=== PATIENT | male | born 1955 | race Caucasian/White ===

== ENCOUNTER 2020-03-24 09:21 | Outpatient (CLI) | payer BC, SELFPAY ==
--- NOTE | ~2020-03-24 | XR_ITS ---
XR abdomen/kub 1V 03/24/2020 09:37 Indication: Kidney stones Procedure: KUB Comparison: 08/03/2019 Findings: Stable right renal stone. Bowel pattern nonobstructive. Lung bases unremarkable. There is o steoarthritis of the hips. Impression: 1: Right nephrolithiasis. Reviewed, dictated and finalized at location B. Impression: 1: Right nephrolithiasis.
== END 2020-03-24 09:22 | disposition home or self-care (01) ==
LOC: ANHIMG 09:24
PROVIDERS: Visit Provider Urology
DX: N20.0 Calculus of kidney (principal)
CPT/HCPCS: 74018

== ENCOUNTER 2020-03-25 23:48 | Emergency (ER) | payer BC, SELFPAY ==
--- NOTE | ~2020-03-25 | XR_ITS ---
EXAMINATION: XR abdomen/kub 1V INDICATION: Kidney stone TECHNIQUE: Supine views of the abdomen were obtained on 2 radiographs. COMPARISON: 03/24/2020 FINDINGS: There is a stable 5 mm stone in the right mid kidney. No additional urinary tract calculi a re identified. A phlebolith is noted in the right pelvis. A moderate volume of colonic stool is prese nt. IMPRESSION: 1. Stable right nephrolithiasis. Reviewed, dictated and finalized at location A.
[2020-03-26 00:18] VITALS: BP 128/82; PULSE 60; RESP 20; TEMP 36.5; O2SAT 100
[2020-03-26 00:58] LABS: Add Urine Microscopic? YES; Appearance Urine Cloudy (Clear); Bacteria Urine Trace /hpf; Bilirubin Urine Negative (Negative); Blood Urine 3+ (Negative); Glucose Urine UA Negative (Negative); Ketones Urine Negative (Negative); Leukocyte Esterase Ur Negative LEU/UL (Negative); Mucus Urine Rare /lpf; Nitrate Urine Negative (Negative); Protein Urine 2+ mg/dL (Negative); RBC Urine >75 /hpf (0-2); Specific Grav Ur 1.015 (1.001-1.035); Urobilinogen Urine Negative mg/dL (<2.0)
[2020-03-26 01:01] LABS: Color Urine Light Red (Yellow)
[2020-03-26 01:27] VITALS: BP 129/84; PULSE 84; RESP 19; O2SAT 100
--- NOTE | 2020-03-26 01:50 | ED.MALEGU ---
HPI - Male Genitourinary General Chief complaint: Urogenital-Male Stated complaint: BLOOD IN URINE Time Seen by Provider: 03/26/20 01:17 History of Present Illness HPI Narrative: Hematuria since earlier in the day. Seems to be improving. He had lithotripsy last July. At thaat time he had some residual stones. He had follow-up x-rays 2 days ago and has an appointment with Dr. Starks this week. No pain or fever. Related Data Home Medications Medication Instructions Recorded Confirmed Probiotic 3,000 mmu cells PO DAILY 07/07/19 03/26/20 cholecalciferol (vitamin D3) 2,000 unit PO DAILY 07/07/19 03/26/20 [Vitamin D3] ferrous sulfate 325 mg PO DAILY 07/07/19 03/26/20 lisinopril 20 mg PO DAILY 07/07/19 03/26/20 omega 3-rdx-igk-fish oil [Fish Oil] 1 cap PO TID 07/07/19 03/26/20 potassium citrate 1,080 mg PO DAILY 03/26/20 03/26/20 Allergies Allergy/AdvReac Type Severity Reaction Status Date / Time No Known Allergies Allergy Verified 03/26/20 00:23 Review of Systems Review of Systems: All systems reviewed & are unremarkable except as noted in HPI and below PMFSH Past Medical History Medical History Anemia Arthritis Chronic lymphocytic leukemia Dx 2000 Eczema Hypertension ANASTASIA (obstructive sleep apnea) oral appliance Tachycardia as manifestation of blood transfusion reaction Last seen Dr. Lepe on 06/30/19 Surgical History Surgical History History of hernia repair x2 Social History Social History (Updated 03/28/20 @ 10:12 by Herve Garces MD) Smoking status: Never smoker Exam Const: General: healthy appearing, no acute distress and alert Orientation/consciousness: patient oriented x3 HENMT: Head: normal to inspection Neck: Neck: normal visual inspection and no lymphadenopathy Chest: Chest palpation & inspection: no tenderness Resp: Effort & Inspection: normal respiratory effort Auscultation: clear to auscultation bilaterally, no rales, no rhonchi and no wheezes Cardio: Jugular venous distension: no JVD Rate: regular rate Rhythm: regular rhythm Heart sounds: no murmurs GI: Inspection: non-distended GI Palp: Yes Soft to palpation and No Tenderness to palpation present (GI) Skin: General skin exam: normal color Neuro: General: patient oriented x3 and moves all extremities Speech: normal speech Extrem: General: no edema Psych: Appearance: well kempt Affect: normal affect Course Course Emergency Course: Case discussed with urology. Bleeding likely stone related. No further imaging or antibiotics at this time. He can follow-up as previously planned. Vital Signs Vital signs: Vital Signs Temperature 36.5 C 03/26/20 00:18 Pulse Rate 60 03/26/20 00:18 Respiratory Rate 20 03/26/20 00:18 Blood Pressure 128/82 03/26/20 00:18 Pulse Oximetry 100 03/26/20 00:18 Temperature 36.5 C 03/26/20 00:18 Pulse Rate 80 03/26/20 03:58 Respiratory Rate 16 03/26/20 03:58 Blood Pressure 128/77 03/26/20 03:58 Pulse Oximetry 99 03/26/20 03:58 MDM - Male Genitourinary MDM Narrative Medical decision making narrative: UA shows hematuria without clear sign of infection. KUB shows stone in essentially unchanged position. Medical Records Attestation: I reviewed the patient's medical records. Lab Data Attestation: I reviewed the patient's lab results. Labs: Lab Results 03/26/20 Range/Units 00:34 Urine Color Light red H (Yellow) Urine Appearance Cloudy H (Clear) Urine pH 6.0 (5.0-9.0) Ur Specific Yoder 1.015 (1.001-1.035) Urine Protein 2+ H (Negative) mg/dL Urine Glucose (UA) Negative (Negative) mg/dL Urine Ketones Negative (Negative) mg/dL Ur Blood (Man) 3+ H (Negative) Urine Nitrate Negative (Negative) Urine Bilirubin Negative (Negative) Urine Urobilinogen Negative (<2.0) mg/dL Leukocyte Est
[2020-03-26 03:58] VITALS: BP 128/77; PULSE 80; RESP 16; O2SAT 99
== END 2020-03-26 03:59 | disposition home or self-care (01) ==
PROVIDERS: Emergency Provider Emergency Medicine; PCP Family Medicine
DX: R31.9 Hematuria, unspecified (principal); D64.9 Anemia, unspecified; M19.90 Unspecified osteoarthritis, unspecified site; G47.33 Obstructive sleep apnea (adult) (pediatric); C91.10 Chronic lymphocytic leukemia of B-cell type not having achieved remission
CPT/HCPCS: 74018; 81001; 87086; 99283

== ENCOUNTER 2020-09-27 11:24 | Outpatient (CLI) | payer BC, SELFPAY ==
--- NOTE | ~2020-09-27 | XR_ITS ---
EXAMINATION: XR abdomen/kub 1V EXAM DATE: 09/27/2020 11:45 INDICATION: Right kidney stone. TECHNIQUE: Frontal projection(s) of the abdomen for interpretation. Comparison is made to prior exami nation from 03/26/2020. FINDINGS: There is a approximately 4 mm right upper quadrant calcification, possible nephrolithiasis . Larger calcification projecting over lower pole of left kidney which could be nephrolithiasis measu ring about 7 mm. Moderate amount of colonic stool. No small bowel dilation. There are mild bony degen erative changes. IMPRESSION: 1. Calcifications, probably bilateral nephrolithiasis. Reviewed, dictated and finalized at location A. LOPER ARCHITECT
== END 2020-09-27 11:25 | disposition home or self-care (01) ==
PROVIDERS: PCP Family Medicine; Visit Provider Urology
DX: N20.0 Calculus of kidney (principal)
CPT/HCPCS: 74018

== ENCOUNTER → 2020-10-03 08:14 | Outpatient (CLI) | payer BC, SELFPAY ==
--- NOTE | ~2020-10-03 | XR_ITS ---
EXAMINATION: XR abdomen/kub 1V DATE: 10/03/2020 08:28 INDICATION: Right kidney stone. TECHNIQUE: A supine view of the abdomen on 2 radiographs was obtained. COMPARISON: Abdomen radiographs 09/27/2020 FINDINGS: There are no dilated loops of bowel. There is a large volume of stool in the colon. There a re 4 mm and 2 mm stones in right kidney. There is a phlebolith in right pelvis. IMPRESSION: 1. Right kidney stones. Reviewed, dictated and finalized at location A. ET LINER IMPRESSION: 1. Right kidney stones.
== END ==
PROVIDERS: PCP Family Medicine; Visit Provider Urology
DX: N20.0 Calculus of kidney (principal)
CPT/HCPCS: 74018

== ENCOUNTER → 2021-01-24 15:17 | Outpatient (CLI) | payer BC, SELFPAY ==
--- NOTE | ~2021-01-24 | XR_ITS ---
XR_CERV2-3V_CR DATE: 01/24/2021 15:30 INDICATION: Acute neck pain TECHNIQUE: AP, open-mouth, odontoid, lateral and swimmer views COMPARISON: None FINDINGS: There is mild levoscoliosis of the cervical spine. There is mild reversal of lower cervical curvature. C1 and C2 are normally aligned and the odontoid process is intact. No fracture or dislocation is evid ent. There is minimal anterolisthesis at C4-5. There is moderate degenerative disc disease at C5-6 and severe degenerative disc disease at C6-7. Mid and lower lumbar moderate uncovertebral joint spurring. Degenerative change at the apophyseal justin nts. IMPRESSION: Mild levoscoliosis of the cervical spine Mild reversal of lower cervical curvature Minimal anterolisthesis at C4-5 Degenerative changes including: Moderate degenerative disease at C5-C6 Severe degenerative disc disease at C6-7 Reviewed, dictated and finalized at Location A. Reviewed, dictated and finalized at location B.
== END ==
PROVIDERS: PCP Family Medicine; Visit Provider Family Medicine
DX: M47.812 Spondylosis without myelopathy or radiculopathy, cervical region (principal)
CPT/HCPCS: 72040

== ENCOUNTER → 2021-02-16 15:29 | Outpatient (CLI) | payer BC, SELFPAY ==
--- NOTE | ~2021-02-16 | XR_ITS ---
XR abdomen/kub 1V 02/16/2021 15:46 INDICATION: Renal stones TECHNIQUE: KUB COMPARISON: Comparison to multiple prior studies sequentially, with oldest reviewed study dated 03/2020. FINDINGS: Bowel gas pattern is normal. There is no evidence of free air, mass, organomegaly, ascites or obstruction. Moderate colonic fecal loading. There are right renal stones. The bones appear intac t. IMPRESSION: 1: Right nephrolithiasis. Reviewed, dictated and finalized at location B. IMPRESSION: 1: Right nephrolithiasis.
== END ==
PROVIDERS: PCP Family Medicine; Visit Provider Nurse Practitioner Adult Health
DX: N20.0 Calculus of kidney (principal)
CPT/HCPCS: 74018

== ENCOUNTER → 2022-03-13 09:45 | Outpatient (CLI) | payer MEDICARE, SELFPAY ==
--- NOTE | ~2022-03-13 | XR_ITS ---
XR abdomen/kub 1V DATE: 03/13/2022 10:03 INDICATION: Right kidney stone TECHNIQUE: AP projection, 2 views COMPARISON: 02/16/2011 KUB FINDINGS: There is a small calcification overlying the right renal silhouette. Noncontrast CT abdomen pelvis would be more sensitive and specific for detection of. Tract calculi. Associated as are intact. No visceromegaly. There is a moderately prominent amount of fecal material within the colon but no apparent bowel obstr uction. Multilevel degenerative disc disease of the lumbar spine most pronounced at L5-S1. IMPRESSION: Possible small right renal nonobstructive calcified calculus; consider noncontrast CT abd omen pelvis for more accurate sensitive assessment for urinary tract calculi. Reviewed, dictated and finalized at Location A. Reviewed, dictated and finalized at location A. IMPRESSION: Possible small right renal nonobstructive calcified calculus; consi sheron noncontrast CT abdomen pelvis for more accurate sensitive assessment for ur inary tract calculi.
== END ==
PROVIDERS: PCP Family Medicine; Visit Provider Nurse Practitioner Adult Health
DX: N20.0 Calculus of kidney (principal)
CPT/HCPCS: 74018

== ENCOUNTER 2022-07-19 09:37 | Outpatient (CLI) | payer MEDICARE, SELFPAY ==
[2022-07-19 10:11] LABS: Hematocrit 42.3 % (42.0-52.0); Hemoglobin 13.7 g/dL (14.0-18.0)
[2022-07-19 10:20] LABS: INR 1.2; Prothrombin Time 14.5 Seconds (11.1-14.7)
[2022-07-19 10:21] LABS: Partial Thromboplastin Time 29.5 SECONDS (22.3-36.8)
== END 2022-07-19 09:38 | disposition home or self-care (01) ==
PROVIDERS: Anesthesiology; PCP Family Medicine; Visit Provider Urology
DX: N20.0 Calculus of kidney (principal); D64.9 Anemia, unspecified; Z01.818 Encounter for other preprocedural examination
CPT/HCPCS: 36415; 85014; 85018; 85610; 85730; 87086

== ENCOUNTER 2022-07-26 01:05 | Day surgery (SDC) | payer MEDICARE, SELFPAY ==
--- NOTE | 2022-07-15 09:22 | PC.NURSE ---
Report to the Outpatient Waiting Room, entrance under the green pavilion located off [facility], at time ___0600____ on date __07/26/22 . Planned Procedure Time: __729 . Time changes happen often and if your time is changed the preop area will call you the afternoon before. - You and your visitor will be asked to self-screen and do not enter if you have any COVID symptoms. - We encourage only one visitor and NO visitors under age 16 are allowed at this time. Your visitor will receive communication by the phone number that is given day of service. - The patient visitor is requested to social distance or may leave the building when not with patient due to restrictions. - A mask is required within the hospital. Patients may have clear liquids (water, carbonated beverages, clear teas, apple juice) until 3 hours prior to surgery with a maximum of 20 ounces. - No food from midnight until time of surgery - Infants may have breast milk until 4 hours before surgery, formula 6 hours prior to surgery. - Children will be allowed to drink immediately following surgery. If applicable, please bring a bottle or sippy cup to assist with drinking. Juice, water, soda, and popsicles are readily available. For infants on formula, please bring formula the day of surgery. Pacifiers are allowed. Take the following medications with a SIP of water the morning of surgery: ___NONE Medications to discontinue per physician __ASPIRIN PER DR TRONCOSO. ALL VITAMINS AND SUPPLEMENTS 3 DAYS PRE OP Date to take last dose__07/22/22 Please no make-up, nail lao, hairspray, perfume, deodorant, or body powder the day of surgery. No jewelry (including any body piercings) or valuables the day of surgery, leave them at home. Please take a shower or bath the night before, or the morning of, surgery with an antibacterial soap. Wear comfortable, loose fitting clothing. Children are encouraged to wear pajamas. - Jewelry must be removed prior to entering the operating room. Rings and piercings that are not removed may be cut off. - The hospital will not accept responsibility for valuables. - Please leave all valuables, including medications, at home the day of surgery. If you are going home after surgery, a licensed delivery motorcycle driver must drive you home. - NO public transportation without another adult. - We recommend that an adult stay with you for 24 hours following discharge. - We also recommend that you do not drive, make important decision, drink alcoholic beverages, or take any drugs that were not prescribed by your health care provider for at least 24 hours after your discharge time. For Pediatric surgeries, we recommend two adults accompany the child home. Follow any additional instructions given to you from your surgeon. If you or anyone in your household have experienced Covid symptoms in the past week, please notify your surgeon or the nurse liaison at the phone number below for possible testing. Telephone instructions given to _PATIENT and asked if any additional questions and then verbalized understanding. Patient advised to call surgeon office or pre surgery nurse liaison [phone] if any additional questions.
[2022-07-15 11:01] VITALS: BMI 20.3
--- NOTE | 2022-07-18 07:28 | PM.HPGS ---
History of Present Illness History of Present Illness Consent: Risks, benefits, and alternatives have been discussed and questions answered. Patient agrees to proceed with procedure. Chief complaint: rigth kidney stones Narrative: Daniel Rodriguez is a 66 year old male With known history of recurrent urolithiasis who is required ESWL in the past. He has a known stone in his right kidney and has opted now to proceed with right ESWL. He is aware the risk of this including, but not limited to, adverse cardiopulmonary events, persistent stone fragments that would require additional therapy and perinephric hematoma. Review of Systems Cardiovascular: Cardiovascular: Denies chest pain, Denies lightheadedness, Denies palpitations and Denies dyspnea Respiratory: Respiratory: Denies dyspnea Gastrointestinal: Gastrointestinal: Denies diarrhea, Denies nausea and Denies vomiting Genitourinary: Genitourinary: Denies hematuria and Denies dysuria Endocrine: Endocrine: Denies palpitations PMFSH Past Medical History Medical History Anemia Arthritis Chronic lymphocytic leukemia Dx 2000 Eczema Hypertension ANASTASIA (obstructive sleep apnea) oral appliance Tachycardia as manifestation of blood transfusion reaction Last seen Dr. Lepe on 06/30/19 Surgical History Surgical History History of hernia repair x2 Social History Social History (Updated 03/28/20 @ 10:12 by Herve Garces MD) Smoking status: Never smoker Spiritual care concerns: No Meds Home Medications and Allergies Home Medications Medication Instructions Recorded Confirmed Type cholecalciferol (vitamin D3) 50 2,000 unit PO DAILY 07/07/19 07/15/22 History mcg (2,000 unit) capsule (Vitamin D3) ferrous sulfate 325 mg (65 mg 325 mg PO DAILY 07/07/19 07/15/22 History iron) tablet lactobacillus combination no.4 3 3,000 mmu cells PO DAILY 07/07/19 07/15/22 History billion cell capsule (Probiotic) lisinopril 20 mg tablet 20 mg PO DAILY 07/07/19 07/15/22 History omega 9-amj-ruq-fish oil 1,000 mg 1 cap PO TID 07/07/19 07/15/22 History (120 mg-180 mg) capsule (Fish Oil) potassium citrate 10 mEq (1,080 1,080 mg PO DAILY 03/26/20 07/15/22 History mg) tablet,extended release aspirin 81 mg tablet,delayed 81 mg PO DAILY 07/15/22 07/15/22 History release (Adult Low Dose Aspirin) magnesium oxide 400 mg (241.3 mg 400 mg PO DAILY 07/15/22 07/15/22 History magnesium) tablet rosuvastatin 20 mg tablet 20 mg PO QNOON 07/15/22 07/15/22 History tamsulosin 0.4 mg capsule 0.4 mg PO HS 07/15/22 07/15/22 History vit C 250 mg-vit E 90 mg-zinc 40 1 tablet PO BID 07/15/22 07/15/22 History mg-copper 1 fv-limbaw-hlzqop capsule (PreserVision AREDS-2) Allergies Allergy/AdvReac Type Severity Reaction Status Date / Time No Known Allergies Allergy Verified 07/15/22 09:09 Exam Const: General: no acute distress Resp: Effort & Inspection: normal respiratory effort GI: Inspection: non-distended GI Palp: No abdominal tenderness and No Guarding due to palpation present (GI) Auscultation: normal bowel sounds Assessment and Plan Assessment and plan (1) Kidney calculus: Code(s): N20.0 - Calculus of kidney Status: Acute Assessment and Plan: Right ESWL
--- NOTE | 2022-07-25 14:40 | P.PNAN_ITS ---
Anes - Initial Pre Proc Eval Procedure: Operation Date: 07/26/22 07:30 Proposed Procedures p Right Extracorporeal Shock Wave Lithotripsy - Miguel Starks MD Date/Time: 07/25/22 14:40 Surgeon: Miguel Starks MD Pre Op Diagnosis: rigth kidney stones Patient Data Age: 66 Gender: M Height: 1.83 m Weight: 68.05 kg Allergies Allergy/AdvReac Type Severity Reaction Status Date / Time No Known Allergies Allergy Verified 07/26/22 06:41 Home Medications Medication Instructions Recorded Confirmed Type cholecalciferol (vitamin D3) 50 2,000 unit PO DAILY 07/07/19 07/26/22 History mcg (2,000 unit) capsule (Vitamin D3) ferrous sulfate 325 mg (65 mg 325 mg PO DAILY 07/07/19 07/26/22 History iron) tablet lactobacillus combination no.4 3 3,000 mmu cells PO DAILY 07/07/19 07/26/22 History billion cell capsule (Probiotic) lisinopril 20 mg tablet 20 mg PO DAILY 07/07/19 07/26/22 History omega 1-spn-ndj-fish oil 1,000 mg 1 cap PO TID 07/07/19 07/26/22 History (120 mg-180 mg) capsule (Fish Oil) potassium citrate 10 mEq (1,080 1,080 mg PO DAILY 03/26/20 07/26/22 History mg) tablet,extended release aspirin 81 mg tablet,delayed 81 mg PO DAILY 07/15/22 07/26/22 History release (Adult Low Dose Aspirin) magnesium oxide 400 mg (241.3 mg 400 mg PO DAILY 07/15/22 07/26/22 History magnesium) tablet rosuvastatin 20 mg tablet 20 mg PO QNOON 07/15/22 07/26/22 History tamsulosin 0.4 mg capsule 0.4 mg PO HS 07/15/22 07/26/22 History vit C 250 mg-vit E 90 mg-zinc 40 1 tablet PO BID 07/15/22 07/26/22 History mg-copper 1 eb-dfdtff-bqoesz capsule (PreserVision AREDS-2) Patient hx anesthesia problems: none Family hx anesthesia problems: none Results Review: All pre-operative results and documents have been reviewed as part of the pre- operative evaluation. [facility] Past Medical History Medical History (Updated 07/25/22 @ 14:42 by Jos Villela MD) Anemia Arthritis Chronic lymphocytic leukemia Dx 2000 Eczema Hyperlipidemia Hypertension ANASTASIA (obstructive sleep apnea) oral appliance Tachycardia as manifestation of blood transfusion reaction Last seen Dr. Lepe on 06/30/19 Surgical History Surgical History History of hernia repair x2 Social History Social History (Updated 03/28/20 @ 10:12 by Herve Garces MD) Smoking status: Never smoker Living arrangements: with family Spiritual care concerns: No Anes - Eval Final PreProcedure Day of Procedure 07/25/22 14:40 Patient weight: normal Heart: regular rate and rhythm Lungs: clear to auscultation Airway: Mallampati scale class II Neurological: alert and oriented Last oral intake: >/= 8 hours ASA classification: III Emergent: no Anesthetic plan: proceed Anesthesia type and monitoring: general LMA Results Review: All pre-operative results and documents have been reviewed as part of the pre-op erative evaluation. Informed Consent: The patient's anesthetic plan and its attendant risks and benefits were discussed with the patient/family/POA. Questions were solicited and answers provided to the satisfaction of the patient/family/POA.
[2022-07-26] VITALS (8 sets, daily range): BP systolic 128–151; BP diastolic 65–82; PULSE 50–76; RESP 12–18; TEMP 36.6; O2SAT 99–100
--- NOTE | ~2022-07-26 | XR_ITS ---
EXAMINATION: XR abdomen/kub 1V DATE: 07/26/2022 06:29 INDICATION: Kidney stone. TECHNIQUE: A supine view of the abdomen on 2 radiographs was obtained. COMPARISON: Abdomen radiographs 03/13/2022 FINDINGS: There are no dilated loops of bowel. The kidneys are obscured by bowel. There is a phleboli th in right pelvis. There is a 4 mm calcification overlying right kidney. IMPRESSION: 1. 4 mm calcification overlying right kidney that may be a stone. Reviewed, dictated and finalized at location A. LITIGATION PARALEGAL
[2022-07-26] MEDS: LACTATED RINGERS 1,000 ML 30 ML IV CONT (06:57)
--- NOTE | 2022-07-26 07:03 | WPDHPUPDATE1 ---
History and Physical Update Update Date/Time: 07/26/22 07:03 History and Physical has been reviewed, including an updated exam of the patient. There are NO changes in the patient's condition. Risks, benefits, and alternatives have been discussed and questions answered. Patient agrees to proceed with procedure.
[2022-07-26] MEDS: ceFAZolin 2 GM/D5W 50 ML 2 GM/50 ML BAG IVPB (07:24)
--- NOTE | 2022-07-26 07:42 | W.PM.PROC2 ---
Procedure Note - Detailed Date of Procedure 07/26/22 Pre-op Diagnosis Right kidney stones Post-op Diagnosis Same Procedure Performed Right ESWL Surgeon Miguel Starks MD Anesthesia General Description of Procedure The patient was brought to the operative suite where he was placed in the supine position on the Dornier lithotripsy table. The focal point of the lithotripter was placed at a 5mm right renal calculus. A total of 2500 shocks were delivered at a power setting of 4. There appeared to be good fragmentation of the stone. The patient tolerated the procedure well and was taken to the recovery room in good condition. Estimated Blood Loss 0 Drains No Packing Yes Pathology Yes Complications No immediate complications Condition Stable
== END 2022-07-26 09:59 | disposition home or self-care (01) ==
PROVIDERS: PCP Family Medicine; Visit Provider Urology
PROC: (CPT 50590; principal; 2022-07-26 07:30)
DX: N20.0 Calculus of kidney (principal); D64.9 Anemia, unspecified; I10 Essential (primary) hypertension; E78.5 Hyperlipidemia, unspecified; C91.10 Chronic lymphocytic leukemia of B-cell type not having achieved remission; G47.33 Obstructive sleep apnea (adult) (pediatric); Z79.82 Long term (current) use of aspirin
CPT/HCPCS: 50590; 74018; J0330; J0690; J1100; J2250; J2405; J2704; J3010; J7120

== ENCOUNTER → 2022-08-10 09:37 | Outpatient (CLI) | payer MEDICARE, SELFPAY ==
--- NOTE | ~2022-08-10 | XR_ITS ---
XR abdomen/kub 1V 08/10/2022 09:50 INDICATION: Renal stone TECHNIQUE: KUB COMPARISON: Comparison to multiple prior studies sequentially, with oldest reviewed study dated 10/03. FINDINGS: Bowel gas pattern is normal. There is no evidence of free air, mass, organomegaly, ascites or obstruction. There is a faint calcification in the right upper abdomen which is unchanged dating back to 10/03/2020. This may represent a renal stone or focal calcification in the liver. Recommend co rrelation with CT as clinically indicated. The bones appear intact. IMPRESSION: 1: Possible right nephrolithiasis versus hepatic calcification or less likely gallstone.. Reviewed, dictated and finalized at location A. TER PUMP OPERATOR IMPRESSION: 1: Possible right nephrolithiasis versus hepatic calcification or less likely g allstone..
== END ==
PROVIDERS: PCP Family Medicine; Visit Provider Urology
DX: N20.0 Calculus of kidney (principal)
CPT/HCPCS: 74018

== ENCOUNTER → 2023-03-18 14:03 | Outpatient (CLI) | payer MEDICARE, SELFPAY ==
--- NOTE | ~2023-03-18 | XR_ITS ---
EXAMINATION: XR abdomen/kub 1V INDICATION: Right-sided kidney stone TECHNIQUE: Supine views of the abdomen were obtained on 2 radiographs. COMPARISON: 08/10/2022 FINDINGS: No definite urolithiasis is identified. The bowel gas pattern is normal. There is a phlebol ith of the right pelvis. The visualized lung bases are clear. There is moderate lumbar spondylosis. T here is moderate osteoarthritis of the hips. IMPRESSION: 1. No definite urolithiasis identified. Reviewed, dictated and finalized at location L.
== END ==
PROVIDERS: PCP Family Medicine; Visit Provider Urology
DX: N20.0 Calculus of kidney (principal)
CPT/HCPCS: 74018

== ENCOUNTER → 2023-07-23 08:43 | Outpatient (CLI) | payer MEDICARE, SELFPAY ==
--- NOTE | ~2023-07-23 | CT_ITS ---
CT Scan of the Chest without Contrast: Clinical Indication: Lung nodule Technique: Contiguous sections were acquired throughout the chest without intravenous contrast. Dose reduction technique was used on this scan by utilizing automated exposure control and iterative recon struction technique. The dose-length product (DLP) was 80.13 mGy-cm. Findings: There is no evidence of any significant mediastinal, hilar or axillary lymphadenopathy. The mediastin al soft tissues appear normal. There is no evidence of pleural or pericardial effusion. 5 mm right middle lobe pulmonary nodule noted (axial image 90). Images through the upper abdomen reveal no abnormalities. Impression: 5 mm right middle lobe pulmonary nodule. According to Fleischner Society criteria, no further follow- up required for a low-risk patient. Consider 12 month follow-up CT for a high-risk patient. Reviewed, dictated and finalized at [facility]. MICS AX DEVELOPER Impression: 5 mm right middle lobe pulmonary nodule. According to Fleischner Society criter ia, no further follow-up required for a low-risk patient. Consider 12 month fol low-up CT for a high-risk patient.
== END ==
PROVIDERS: PCP Family Medicine; Visit Provider Family Medicine
DX: R91.1 Solitary pulmonary nodule (principal); Z91.89 Other specified personal risk factors, not elsewhere classified
CPT/HCPCS: 71250

== ENCOUNTER → 2023-09-26 09:40 | Outpatient (CLI) | payer MEDICARE, SELFPAY ==
--- NOTE | ~2023-09-26 | XR_ITS ---
EXAMINATION: XR abdomen/kub 1V INDICATION: Calculus of the kidney TECHNIQUE: Supine views of the abdomen were obtained on 2 radiographs. COMPARISON: 03/18/2023 FINDINGS: No urolithiasis is identified. There is a phlebolith of the right pelvis. The bowel gas pat tern is normal. There is moderate osteoarthritis of the hips. Moderate lumbar spondylosis is noted. T he lung bases are clear. IMPRESSION: 1. No urolithiasis identified. Reviewed, dictated and finalized at location F. GRAPH TECHNICIAN
== END ==
PROVIDERS: PCP Family Medicine; Visit Provider Urology
DX: N20.0 Calculus of kidney (principal)
CPT/HCPCS: 74018

== ENCOUNTER 2024-09-10 15:32 | Outpatient (CLI) | payer MEDICARE, SELFPAY ==
--- NOTE | ~2024-09-10 | XR_ITS ---
XR abdomen/kub 1V Ordering provider: Miguel Starks MD History: . Kidney stone on right side . Comparison: September 26, 2023 FINDINGS: BOWEL: Nonobstructive bowel gas pattern. ORGANOMEGALY: None. SIGNIFICANT PATHOLOGIC CALCIFICATIONS: Tiny calcification seen in the right kidney suggestive of a st one. OTHER: No free air is seen under the diaphragm. Mild degenerative changes of the spine. Mild bilatera l hip osteoarthritic changes. IMPRESSION: NO ACUTE ABDOMINAL FINDINGS. Right kidney stone. Reviewed, dictated and finalized at location A. ER FURNACE
== END 2024-09-10 15:33 | disposition home or self-care (01) ==
LOC: MICIMG 15:33
PROVIDERS: PCP Family Medicine; Visit Provider Urology
DX: N20.0 Calculus of kidney (principal)
CPT/HCPCS: 74018

== ENCOUNTER 2024-11-16 07:46 | Outpatient (CLI) | payer MEDICARE, SELFPAY ==
--- OUTSIDE RECORDS SUMMARY | 2024-11-16 07:51 | XMS_ITS | Encounter Summary ---
Author Organization [facility] Address [address] [place] [address] Care Team Providers Care Enrobing Machine Operator Name Role Phone Unavailable Primary Care Provider Unavailabl e Encounter Details Date Type Department Care Team (Late st Contact Info) Description 12/26/2022 Lab Requisition [facility] DermPath Lab [address] [place] [phone] Chester Valentin MD [address] [place] [address] Social History Tobacco Use Types Packs/Day Years Used Date Smoking Tobacco: Never Assessed Sex and Gender Information Value Date Recorded Sex Assigned at Not on file Gender Identity Not on file Sexual Orientation Not on file documented as of this encounter Plan of Treatment Not on file documented as of this encounter Procedures Procedure Name Priority Date/Time Associated Diagnosis Comments DERMATOPATHOLOGY Routine 12/26/2022 12:0 0 AM CDT documented in this encounter Results * DERMATOPATHOLOGY (12/26/2022 12:00 AM CDT) Case Report Dermatopathology Report Case: [id number] Authorizing Provider: Chester Valentin MD Collected: 12/26/2022 12:00 AM Ordering Location: [facility] Derm[facility] Lab Received: 12/26/2022 04:21 PM Pathologist: Pamela Pierce MD Specimen: Skin, right superior shoulder 12:19 PM CDT DERMATOPATHOLOGY LABORATORY Final Diagnosis Specimen A. SKIN, right superior shoulder: BASAL CELL CARCINOMA, NODULAR TYPE (C44.612) PRESENT AT MARGIN 12:19 PM CDT DERMATOPATHOLOGY LABORATORY Clinical History 2-3 yr Hx of Raised. Please Check Margins. 12:19 PM CDT DERMATOPATHOLOGY LABORATORY Gross Description Specimen A: Received is one formalin filled container labeled with the patient's name and designated right superior shoulder. The specimen consists of a shave biopsy measuring [id number]. Jar 0. 12:19 PM CDT DERMATOPATHOLOGY LABORATORY Microscopic Description Specimen A. SKIN, right superior shoulder: Within the dermis there are aggregates of basaloid cells with a high nuclear to cytoplasmic ratio and peripheral palisading. This lesion is present at the margin of the specimen. 12:19 PM CDT DERMATOPATHOLOGY LABORATORY Disclaimer An external and internal positive and negative controls are appropriate for the histochemical, immunohistochemical and immunofluorescence stain(s) in this case (if any), except where stated explicitly. The performance characteristics of the stain(s) cited in this report were developed and its performance characteristic determined by the Dermatopathology Laboratory at [facility], directed by Dr. Cori Hernández. These tests need not be, and therefore are not, approved by the [place] Food and Drug Administration. The tests are used for clinical purposes. Billing Codes Specimen Charges Stain Charges 35350 1 12:19 PM CDT DERMATOPATHOLOGY LABORATORY Embedded Images 12:19 PM CDT DERMATOPATHOLOGY LABORATORY Pathology/Cytolog y TISSUE SPECIMEN FROM SKIN / Unknown 12/26/2022 12/26/2022 4:21 PM CDT Chester Valentin MD LAB - PATHOLOGY/CYTO LOGY ORDERABLES DERMATOPATHOLOGY LABORATORY [facility] - Department of Dermatology [address] [place] [address], [facility] [phone] documented in this encounter Visit Diagnoses Not on filedocumented in this encounter
--- OUTSIDE RECORDS SUMMARY | 2024-11-16 07:51 | XMS_ITS | Encounter Summary ---
Author Organization [facility] Address [address] [place] [address] Care Team Providers Care Acls Specialist Name Role Phone Unavailable Primary Care Provider Unavailabl e Encounter Details Date Type Department Care Team (Late st Contact Info) Description 10/03/2023 Lab Requisition [facility] - DermPath Lab [address] [place] [phone] Chester Valentin MD [address] [place] [address] Social History Tobacco Use Types [...] Priority Date/Time Associated Diagnosis Comments DERMATOPATHOLOGY Routine 10/02/2023 3:33 AM AOC OPERATIONS INTELLIGENCE OFFICER documented in this encounter Results * DERMATOPATHOLOGY (10/02/2023 3:33 AM AOC OPERATIONS INTELLIGENCE OFFICER) Case Report Dermatopathology Report Case: [id number] Authorizing Provider: Chester Valentin MD Collected: 10/02/2023 03:33 AM Ordering Location: [facility] Received: 10/03/2023 09:45 AM Pathologist: Pamela Pierce MD Specimens: A) - Skin, right lat upper arm sup B) - Skin, right lat upper arm inf 4 3:27 PM AOC OPERATIONS INTELLIGENCE OFFICER DERMATOPATHOLOGY LABORATORY Final Diagnosis Specimen A. SKIN, right lat upper arm sup: SEBORRHEIC KERATOSIS, IRRITATED (L82.0) Specimen B. SKIN, right lat upper arm inf: BENIGN VERRUCOUS KERATOSIS (L82.1) 4 3:[address] [facility] DERMATOPATHOLOGY LABORATORY Clinical History A-B: r/o Neoplasm 4 3:[address] [facility] DERMATOPATHOLOGY LABORATORY Gross Description Specimen A: Received is one formalin filled container labeled with the patients name and designated right lat upper arm sup. The specimen consists of a shave removal measuring 6xx61 mm. Jar 0. Specimen B: Received is one formalin filled container labeled with the patients name and designated right lat upper arm inf. The specimen consists of a shave removal measuring 8x6x1 mm. Jar 0. 4 3:[address] [facility] DERMATOPATHOLOGY LABORATORY Microscopic Description Specimen A. SKIN, right lat upper arm sup: There is acanthosis consisting of fairly uniform squamous cells with eosinophilic cytoplasm and squamous eddies. Specimen B. SKIN, right lat upper arm inf: Sections show hyperkeratosis, papillomatosis, hypergranulosis, and acanthosis. These histological findings can be seen in a verruca vulgaris or a seborrheic keratosis. 4 3:[address] [facility] DERMATOPATHOLOGY LABORATORY Disclaimer An external and internal positive and negative controls are appropriate for the histochemical, immunohistochemical and immunofluorescence stain(s) in this case (if any), except where stated explicitly. The performance characteristics of the stain(s) cited in this report were developed and its performance characteristic determined by the Dermatopathology Laboratory at [facility], directed by Dr. Cori Hernández. These tests need not be, and therefore are not, approved by the [place] Food and Drug Administration. The tests are used for clinical purposes. Billing Codes Specimen Charges Stain Charges 84911 67716 1 1 4 3:[address] [facility] DERMATOPATHOLOGY LABORATORY Embedded Images 4 3:[address] [facility] DERMATOPATHOLOGY LABORATORY Pathology/Cytology TISSUE SPECIMEN FROM SKIN / Unknown 10/02/2023 3:33 AM AOC OPERATIONS INTELLIGENCE OFFICER 10/03/2023 9:45 AM AOC OPERATIONS INTELLIGENCE OFFICER Miscellaneous samples (specimen) TISSUE SPECIMEN FROM SKIN / Unknown 10/02/2023 3:33 AM AOC OPERATIONS INTELLIGENCE OFFICER 10/03/2023 9:45 AM AOC OPERATIONS INTELLIGENCE OFFICER Chester Valentin MD LAB - PATHOLOGY/CYTO LOGY ORDERABLES DERMATOPATHOLOGY LABORATORY [facility] - Department of Dermatology [facility] [address] [place] [address], [address] [phone] documented in this encounter Visit Diagnoses Not on filedocumented in this encounter
--- OUTSIDE RECORDS SUMMARY | 2024-11-16 07:51 | XMS_ITS | Clinical Summary ---
Author Organization [facility] Address [address] [facility] [place] [address] Phone Care Team Providers Care Auger Mill Operator Name Role Phone Kenny Balderrama MD Primary Care Provider [phone] Dariusz Ingram DO Unavailable [phone] Allergies No known active allergies Medications ferrous sulfate 325 mg (65 mg of elemental iron) tablet Take 1 tablet (325 mg total) by mouth daily Active cholecalcifero l (VITAMIN D-3) 2000 unit capsule Take 1 capsule (2,000 Units total) by mouth daily Active fish oil-dha-epa 1,200-144-216 mg capsule Take 950 mg by mouth 3 (three) times a day Active Lactobacillus acidophilus 10 billion cell capsule Take 1 capsule by mouth daily Active potassium citrate ER (UROCIT-K) 10 mEq (1,080 mg) CR tablet Take 1 tablet (10 mEq total) by mouth daily 12/14/19 20 Active carboxymethylc ellulose sodium (LUBRICANT DRY EYE RELIEF OPHT) Administer 1 drop into affected eye(s) nightly Active tamsulosin (FLOMAX) 0.4 mg extended release capsule Take 1 capsule (0.4 mg total) by mouth nightly 04/09/20 21 Active aspirin 81 mg enteric coated tablet Take 1 tablet (81 mg total) by mouth daily Active vit C,Y-Tb-xunqj-l utein-zeaxan (PreserVision AREDS-2) 250-90-40-1 mg capsule 2 (two) times a day 12/28/19 22 Active fluticasone propionate (CUTIVATE) 0.005 % ointment 15 Applications daily as needed 10/16/19 23 Active finasteride (PROSCAR) 5 mg tablet Take 1 tablet (5 mg total) by mouth daily 90 tablet 09/09/19 24 Active rosuvastatin (CRESTOR) 20 mg tablet Take 1 tablet (20 mg total) by mouth daily 90 tablet 3 11/10/19 24 Active lisinopriL (PRINIVIL,ZEST RIL) 20 mg tablet TAKE 1 TABLET BY MOUTH EVERY DAY 90 tablet 3 09/03/20 24 Active magnesium oxide (MAG-OX) 400 mg (241.3 mg elemental magnesium) tablet TAKE 1 TABLET BY MOUTH EVERY DAY 90 tablet 1 10/25/19 25 Active magnesium oxide (MAG-OX) 400 mg (241.3 mg elemental magnesium) tabletIndicati ons:hypomagnes emia Take 1 tablet (400 mg total) by mouth daily 90 tablet 3 10/29/19 24 2024 Discontinued terbinafine (LamiSIL) 250 mg tablet Take 1 tablet (250 mg total) by mouth daily 06/15/20 24 2024 Discontinued(T herapy completed) Active Problems Problem Noted Date Diagnosed Date PLMD (periodic limb movement disorder) Assessment & Plan (08/11/2024 3:29 PM BAR BACK): The patient did not feel like his limbs are waking him up at night. Assessment & Plan (07/07/2024 8:13 AM CDT): The patient denies that his limbs are disrupting asleep. The patient is currently on iron supplement. The patient denies the want to start a treatment for the restless legs at this time. Assessment & Plan (03/03/2024 9:33 AM CDT): He is asymptomatic with respect to the PLMS. He is normal renal function and I will check an iron ferritin level since he is on supplemental iron. Arthralgia of both knees 03/03/2024 ANASTASIA (obstructive sleep apnea) 01/14/2024 Assessment & Plan (08/11/2024 3:29 PM BAR BACK): The patient will continue with oral appliance therapy and positional therapy. Assessment & Plan (07/07/2024 8:12 AM CDT): The patient will continue with oral appliance therapy. The patient is agreeable to complete a nocturnal polysomnogram with oral appliance in place to evaluate how well the oral appliance is treating his obstructive sleep apnea. Assessment & Plan (03/03/2024 9:32 AM CDT): The sleep study confirmed the ANASTASIA and I will send a referral to Dr. Maxx Castro for him to make a new oral appliance for the patient. I did ask the patient to call me after he has the new oral appliance and I will order another sleep study with the oral appliance in place to be certain that is working well for him. He is going to check with Medicare to be certain that they will pay for the new appliance. He will follow up here in 4 months. Assessment & Plan (01/14/2024 9:12 AM CDT): The patient had been well treated with the oral appliance for ANASTASIA. His oral appliance is now cracked/broken. I will proceed with a diagnostic nocturnal polysomnogram to reconfirm the diagnosis and severity and he will follow up here in 6 weeks. If the ANASTASIA is still present with an AHI less than 15, then I would refer him back to the dentist for a new oral appliance. 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 Other male erectile dysfunction 01/01/2019 Assessment & Plan (01/01/2019 9:25 AM CDT): Trial of SE quentin reviewed Essential hypertension 12/28/2018 Assessment & Plan (09/13/2020 8:34 AM BAR BACK): Well controlled. Assessment & Plan (03/08/2020 9:15 AM CDT): Excellent control. Continue current medications Assessment & Plan (06/30/2019 8:35 AM CDT): Well controlled. Continue lisinopril Assessment & Plan (12/28/2018 8:51 AM CDT): Patient monitors his blood pressure closely at home. Has remained in normal range. Follow-up blood pressure here 125/72 CLL (chronic lymphocytic leukemia) 11/25/2018 Dyshidrosis 12/02/2016 12/31/2022 PAC (premature atrial contraction) 12/02/2016 12/31/2022 Resolved Problems Problem Noted Date Diagnosed Date Resolved Date Palpitations 03/31/2023 05/06/2023 Difficulty urinating 01/29/2021 023 Neck pain, acute 01/24/2021 12/31/2022 Flank pain 06/10/2019 12/31/2019 Palpitations 12/28/2018 12/31/2022 Assessment & Plan (09/13/2020 8:34 AM BAR BACK): Resolved Assessment & Plan (03/08/2020 9:15 AM CDT): No structural heart disease. Resolved. Assessment & Plan (06/30/2019 8:35 AM CDT): Minimal. Would not recommend EP study would not recommend anticoagulation or antiarrhythmics. Assessment & Plan (12/28/2018 8:51 AM CDT): No sign of structural heart disease have resolved. Echocardiogram about 2 and half years ago was normal Other chest pain 12/28/2018 06/10/2019 Overview (12/28/2018): Patient states can have a burning sensation when he just starts exercising but quickly goes away as he continues his workout. he continues to swim or jog daily Assessment & Plan (12/28/2018 8:52 AM CDT): Improves with exercise Tachycardia 12/15/2015 12/31/2022 Encounters Date Type Department Care Team Description 11/09/2024 9:00 AM BAR BACK Office Visit [facility] Family Medicine at [address] [phone] Kristyn Adler PA Bilateral hearing loss, unspecified hearing loss type (Primary Dx) 10/20/2024 12:30 PM BAR BACK Office Visit [facility] Cardiology [address] [place] [phone] Sukhjinder Young MD Dyspnea, unspecified type (Primary Dx) 09/10/2024 Orders Only [facility] Health Information Management [address] [place] [address] Kenny Balderrama MD 08/23/2024 9:00 AM BAR BACK Office Visit [facility] Family Medicine at [address] [place] [phone] Kenny Balderrama MD Medicare annual wellness visit, subsequent (Primary Dx); Prostate cancer screening; Pure hypercholesterolemia from Last 3 Months Immunizations Immunization Administration Dates Next Due COVID-19 mRNA (Keen Guides) 0.3 m L (30 mcg) vaccine (12 years and up) 07/01/2024 Influenza, Quad, Adjuvantate d, Intramuscular 07/17/2021 Influenza, Quadrivalent, Nathalia l Culture-based MDCK, Antibiotic Free, Intramuscular 08/19/2018 Influenza, Quadrivalent, Hig h Dose, Preservative Free, Intrr 06/07/2023,06/16/2022,06/14/2020 Influenza, Quadrivalent, Spl it, Preservative Free, Intramuscular 09/14/2014 Influenza, Trivalent, Adjuva nted, Intramuscular 07/01/2024 Influenza, Trivalent, High D ose, Split, Preservative Free, Intramuscular 06/29/2019 Influenza, Trivalent, Preser vative Free, Intramuscular 08/11/2016,08/25/2015 Influenza, Unspecified 07/01/2024,2022,07/15/2022,07/17 Sodraft SARS-CoV-2 Monovalent Vaccination (12+ Yrs) PURPLE 06/24/2021,11/13/2020,10/16/2020 Pneumococcal Conjugate PCV 13 09/05/2016 Pneumococcal Polysaccharide PPV23 06/22/2017 RSV Vaccine, Pref, Recombina nt, Subunit, Adjuvanted, PF, IM (Arexvy) 06/23/2023 Tdap 12/25/2020 ZOSTER Recombinant 04/25/2018,01/15/2018 Surgical History Surgery Date Site/Laterality Comments HERNIA REPAIR COLONOSCOPY CYST REMOVAL 09/08/2019 - 09/07/2020 on his back LITHOTRIPSY 09/08/2019 - 09/07/2020 Medical History Medical History Date Comments Leukemia (HCC) Hypertension Palpitation PAC (premature atrial contraction) Tachycardia Dry eyes Covid 06/28/2022 [id number] 2 tested positive 07/12/2022 and 07/15/2022 tested negative GERD (gastroesophageal reflux disease) 12/29/1982 Arthritis 09/08/2019 Cataract 09/08/2019 Brain concussion 02/26/1986 Heart disease 2020 Sleep apnea 2018 Kidney stone 2019 Family History Medical History Relation Name Comments Alzheimer's disease Father father Hypertension Maternal Grandmother maternal grandmother Miscarriages / Stillbirths Maternal Grandmother matern al grandmother Stroke Maternal Grandmother maternal grandmother Diabetes Mother mother Heart disease Mother mother Hypertension Mother mother Stroke Mother mother Stroke Paternal Grandfather paternal grandfather Relation Name Status Comments Father father Maternal Grandmother maternal grandmother Mother mother Paternal Grandfather paternal grandfather Social History Tobacco Use Types Packs/Day Years Used Date Smoking Tobacco: Never Smokeless Tobacco: Never Tobacco Cessation:Counseling Given: Not Answered Alcohol Use Standard Drinks/Week Comments Yes 7 (1 standard drink = 0.6 oz pur e alcohol) AUDIT-C Answer Date Recorded Q1: How often do you have a drink containing alcohol? 4 or more times a week 04/16/2021 Q2: How many drinks containi ng alcohol do you have on a typical day when you are drinking? 1 or 2 Q3: How often do you have si x or more drinks on one occasion? Never 04/16/2021 PHQ-2 Answer Date Recorded PHQ-2 Total Score (If total score is 3 or more points, staff should administer the PHQ-9) 1 08/22/2024 Sex and Gender Information Value Date Recorded Sex Assigned at Not on file Legal Sex Male 5:45 PM BAR BACK Gender Identity Not on file Sexual Orientation Not on file Obstetrics History Last Filed Vital Signs Vital Sign Reading Time Taken Comments Blood Pressure 132/74 11/09/2024 8:57 AM BAR BACK Pulse 53 11/09/2024 8:57 AM BAR BACK Temperature 36.2 C (97.1 F) 11/09/2024 8:57 AM BAR BACK Respiratory Rate 18 11/09/2024 8:57 AM BAR BACK Oxygen Saturation 99% 11/09/2024 8:57 AM BAR BACK Inhaled Oxygen Concentration - - Weight 71.2 kg (156 lb 14.4 oz) 11/09/2024 8:57 AM BAR BACK Height 177.8 cm (5' 10 ) 11/09/2024 8:57 AM BAR BACK Body Mass Index 22.51 11/09/2024 8:57 AM BAR BACK Plan of Treatment Health Maintenance Due Date Last Done Comments Hepatitis B Screening 12/10/1973 Pneumococcal vaccine 65+ (3 of 3 - PPSV23, PCV20 or PCV21) 06/22/2022 06/22/2017, 09/05/2016 Covid-19 Vaccine (7 - Pfizer risk season) 2024 07/01/2024, 10/24/2022, 01/11/2022, Additional history exists Colon Cancer Screening-Colonoscopy 08/23/2025 08/23/2015 Depression Screening 08/23/2025 08/23/2024, 08/10/2024, 08/20/2023, Additional history exists Fall Risk Assessment 08/23/2025 08/23/2024, 08/20/2023, 02/13/2023, Additional history exists Well Visit 65+ 08/23/2025 08/23/2024, 08/08, 08/15/2022, Additional history exists DTaP/Tdap/Td Vaccine (2 - Td or Tdap) 12/25/2030 12/25/2020 Colon Cancer Screening-CT Colonography Discontinued 08/23/2015 Colon Cancer Screening-DNA Stool Discontinued 08/23/20 15 Colon Cancer Screening-FIT Discontinued 08/23/2015 Colon Cancer Screening-Sigmoidoscopy Discontinued 08/23/2015 Zoster Vaccine Completed 04/25/2018, 01/15/2018 Hepatitis C Screening Completed 07/11/2021 Influenza Vaccine Completed 07/01/2024, , 06/07/2023, Additional history exists Prostate Cancer Screening-PSA Discontinued , 09/23/2023, 07/17/2022, Additional history exists Procedures Procedure Name Priority Date/Time Associated Diagnosis Comments HEPATITIS B SURFACE ANTIBODY (IMMUNE STATUS) Routine 10/04/2024 8:01 AM BAR BACK Need for hepatitis B screening test LIPID PANEL Routine 10/04/2024 7:58 AM BAR BACK Pure hypercholesterolemia PSA SCREEN Routine 10/04/2024 7:58 AM BAR BACK Prostate cancer screening SCAN - RADIOLOGY/IMAGING 09/10/2024 HEPATITIS C ANTIBODY Routine 07/11/2021 7:03 AM CDT COLONOSCOPY Routine 08/23/2015 from Last 3 Months or Most Recently Relevant to Health Maintenance Results * Hepatitis B surface antibody (immune status) Blood (10/04/2024 8:01 AM BAR BACK) HBsAb (immune status) NON-REACTI VE NON-REACTI VE [facility] Blood 10/04/2024 8:01 AM BAR BACK 10/04/2024 8:01 AM BAR BACK us Kenny Balderrama MD LAB MICROBIOLOGY - GENERAL OR DERABLES Final Result Performing Organization Address [facility] Co de Phone Number TAPAN [facility] [address] [facility] [place] [address] * PSA screen (10/04/2024 7:58 AM BAR BACK) PSA 1.09 < OR = 4.00 ng/mL [facility] Comment: The total PSA value from this assay system is standardized against the WHO standard. The test result will be approximately 20% lower when compared to the equimolar-standardized total PSA (Shantell Secaucus). Comparison of serial PSA results should be interpreted with this fact in mind. This test was performed using the Siemens chemiluminescent method. Values obtained from different assay methods cannot be used interchangeably. PSA levels, regardless of value, should not be interpreted as absolute evidence of the presence or absence of disease. Blood 10/04/2024 7:58 AM BAR BACK 10/04/2024 7:59 AM BAR BACK Narrative [facility] - 10/05/2024 4:40 AM BAR BACK FASTING:YES FASTING: YES Kenny Balderrama MD LAB BLOOD ORDERABLES Final Re sult Performing Organization Address [facility] Co de Phone Number T[facility] [address] [facility] [place] [address] * (ABNORMAL) Lipid panel (10/04/2024 7:58 AM BAR BACK) Cholesterol 91 <200 mg/dL [facility] HDL 29(L) > OR = 40 mg/dL [facility] Triglycerides 45 <150 mg/dL [facility] LDL 49 mg/dL (calc) [facility] Comment: Reference range: <100 Desirable range <100 mg/dL for primary prevention; <70 mg/dL for patients with CHD or diabetic patients with > or = 2 CHD risk factors. LDL-C is now calculated using the Matt calculation, which is a validated novel method providing better accuracy than the Friedewald equation in the estimation of LDL-C. Len SS et al. IRAIDA. 2013;310(19): 1038-4322 (http://education.[facility].com/faq/EJW438) Chol/HDL ratio 3.1 <5.0 (calc) [facility] Non-HDL, (LDL+VLDL) 62 <130 mg/dL (calc) [facility] Comment: For patients with diabetes plus 1 major ASCVD risk factor, treating to a non-HDL-C goal of <100 mg/dL (LDL-C of <70 mg/dL) is considered a therapeutic option. Blood 10/04/2024 7:58 AM BAR BACK 10/04/2024 7:59 AM BAR BACK Narrative [facility] - 10/05/2024 4:40 AM BAR BACK FASTING:YES FASTING: YES Kenny Balderrama MD LAB BLOOD ORDERABLES Final Re sult T[facility] [address] [place] [address] * SCAN - RADIOLOGY/IMAGING (09/10/2024) Anatomical Region Laterality Modality Other Kenny Balderrama MD Final Result * Hepatitis C antibody (07/11/2021 7:03 AM CDT) Hep C Ab NON-REACTI VE NON-REACT ROSE MARIE [facility] SIGNAL TO CUT-OFF 0.04 <1.00 [facility] Comment: HCV antibody was non-reactive. There is no laboratory evidence of HCV infection. In most cases, no further action is required. However, if recent HCV exposure is suspected, a test for HCV RNA (test code 32326) is suggested. For additional information please refer to http://education.[employer]faq/SET91l8 (This link is being provided for informational/ educational purposes only.) 07/11/2021 7:03 AM CDT 07/11/2021 7:05 AM CDT Narrative [facility] - 07/12/2021 1:17 PM CDT FASTING:YES FASTING: YES Kenny Balderrama MD LAB MICROBIOLOGY - GENERAL OR DERABLES Final Result [facility] [address] [phone] * Colonoscopy (08/23/2015) Anatomical Region Laterality Modality Other Historical Provider ENDOSCOPY PROCEDURES [facility] Result from Last 3 Months or Most Recently Relevant to Health Maintenance Insurance [facility]ICARE [facility]ICARE [facility]ARE [facility] Advance Directives For more information, please contact: [phone] Documents on File Type Date Recorded Patient Medical Cash Poster Expl anation Power of Needle Straightener 08/23/2024 10:21 AM ADVANCE DIRECTIVE 08/01/2021 3:26 PM Power of Needle Straightener 08/01/2021 1:41 PM ADVANCE DIRECTIVE 01/16/2013 12:00 AM [place] OF RELIEF OPERATOR FINANCIAL/MEDICAL Care Teams Auger Mill Operator Relationship Specialty Start Date End Date Kenny Balderrama MD PCP - General 12/17/17 Dariusz Ingram DO [address] [place] [id number] Medical Oncologist/Forming Mill Operator Hematology and Oncology 05/03/22
--- OUTSIDE RECORDS SUMMARY | 2024-11-16 07:51 | XMS_ITS | Referral Summary ---
Author Organization [facility] Address [address] [place] [address] Phone Care Team Providers Care Boiler Fireman Name Role Phone Kenny Balderrama MD Primary Care Provider [phone] Dariusz Ingram DO Unavailable [phone] Encounters Date Type Department Care Team Description 11/09/2024 9:00 AM DB2 SYSTEMS PROGRAMMER Office Visit [facility] Medical [facility] Family Medicine at [address] [phone] Kristyn Adler PA Bilateral hearing loss, unspecified hearing loss type (Primary Dx) 10/20/2024 12:30 PM DB2 SYSTEMS PROGRAMMER Office Visit [facility] Medical [facility] Cardiology [address] [place] [phone] Sukhjinder Young MD Dyspnea, unspecified type (Primary Dx) 09/10/2024 Orders Only [facility] Health Information Management [address] [place] [id number] Kenny Balderrama MD 08/23/2024 9:00 AM DB2 SYSTEMS PROGRAMMER Office Visit [facility] Family Medicine at [address] [place] [phone] Kenny Balderrama MD Medicare annual wellness visit, subsequent (Primary Dx); Prostate cancer screening; Pure hypercholesterolemia from Last 3 Months Allergies No known active allergies Medications ferrous [...] mg total) by mouth daily Active vit C,A-Rl-fhdgv-l utein-zeaxan (PreserVision AREDS-2) 250-90-40-1 mg capsule 2 [...] tablet (250 mg total) by mouth daily 06/15/202024 Discontinued(T herapy completed) Active Problems Problem Noted Date Diagnosed Date PLMD (periodic limb movement disorder) Assessment & Plan (08/11/2024 3:29 PM DB2 SYSTEMS PROGRAMMER): The patient did not feel like his [...] 01/14/2024 Assessment & Plan (08/11/2024 3:29 PM DB2 SYSTEMS PROGRAMMER): The patient will continue with oral appliance [...] 12/28/2018 Assessment & Plan (09/13/2020 8:34 AM DB2 SYSTEMS PROGRAMMER): Well controlled. Assessment & Plan (03/08/2020 9:15 [...] 12/31/2022 Assessment & Plan (09/13/2020 8:34 AM DB2 SYSTEMS PROGRAMMER): Resolved Assessment & Plan (03/08/2020 9:15 AM [...] CDT): Improves with exercise Tachycardia 12/15/2015 12/31/2022 Immunizations Immunization Administration Dates Next Due COVID-19 mRNA (readeo) 0.3 m L (30 mcg) vaccine (12 [...] vative Free, Intramuscular 08/11/2016,08/25/2015 Influenza, Unspecified 07/01/2024,2022,07/15/2022,07/17 Pfizer SARS-CoV-2 Monovalent Vaccination (12+ Yrs) PURPLE 06/24/2021,11/13/2020,10/16/2020 Pneumococcal Conjugate PCV 13 09/05/2016 Pneumococcal Polysaccharide PPV23 06/22/2017 RSV Vaccine, Pref, Recombina nt, Subunit, Adjuvanted, PF, IM (Arexvy) 06/23/2023 Tdap 12/25/2020 ZOSTER Recombinant 04/25/2018,01/15/2018 Social History Tobacco Use Types Packs/Day Years [...] on file Legal Sex Male 5:45 PM DB2 SYSTEMS PROGRAMMER Gender Identity Not on file Sexual Orientation Not on file Last Filed Vital Signs Vital Sign Reading Time Taken Comments Blood Pressure 132/74 11/09/2024 8:57 AM DB2 SYSTEMS PROGRAMMER Pulse 53 11/09/2024 8:57 AM DB2 SYSTEMS PROGRAMMER Temperature 36.2 C (97.1 F) 11/09/2024 8:57 AM DB2 SYSTEMS PROGRAMMER Respiratory Rate 18 11/09/2024 8:57 AM DB2 SYSTEMS PROGRAMMER Oxygen Saturation 99% 11/09/2024 8:57 AM DB2 SYSTEMS PROGRAMMER Inhaled Oxygen Concentration - - Weight 71.2 kg (156 lb 14.4 oz) 11/09/2024 8:57 AM DB2 SYSTEMS PROGRAMMER Height 177.8 cm (5' 10 ) 11/09/2024 8:57 AM DB2 SYSTEMS PROGRAMMER Body Mass Index 22.51 11/09/2024 8:57 AM DB2 SYSTEMS PROGRAMMER Plan of Treatment Not on file Procedures Procedure Name Priority Date/Time Associated Diagnosis Comments HEPATITIS B SURFACE ANTIBODY (IMMUNE STATUS) Routine 10/04/2024 8:01 AM DB2 SYSTEMS PROGRAMMER Need for hepatitis B screening test LIPID PANEL Routine 10/04/2024 7:58 AM DB2 SYSTEMS PROGRAMMER Pure hypercholesterolemia PSA SCREEN Routine 10/04/2024 7:58 AM DB2 SYSTEMS PROGRAMMER Prostate cancer screening SCAN - RADIOLOGY/IMAGING 09/10/2024 HEPATITIS C ANTIBODY Routine 07/11/2021 7:03 AM CDT COLONOSCOPY Routine 08/23/2015 from Last 3 Months or Most Recently Relevant to Health Maintenance Results * Hepatitis B surface antibody (immune status) Blood (10/04/2024 8:01 AM DB2 SYSTEMS PROGRAMMER) HBsAb (immune status) NON-REACTI VE NON-REACTI VE [facility] Blood 10/04/2024 8:01 AM DB2 SYSTEMS PROGRAMMER 10/04/2024 8:01 AM DB2 SYSTEMS PROGRAMMER us Kenny Balderrama MD LAB MICROBIOLOGY - GENERAL OR DERABLES Final Result [facility] [address] [address] * PSA screen (10/04/2024 7:58 AM DB2 SYSTEMS PROGRAMMER) PSA 1.09 < OR = 4.00 ng/mL [facility] Comment: The total PSA value from this assay system is standardized against the WHO standard. The test result will be approximately 20% lower when compared to the equimolar-standardized total PSA (Sh[place]ell [place]). Comparison of serial PSA results should be interpreted with this fact in mind. This test was performed using the Siemens chemiluminescent method. Values obtained from different assay methods cannot be used interchangeably. PSA levels, regardless of value, should not be interpreted as absolute evidence of the presence or absence of disease. Blood 10/04/2024 7:58 AM DB2 SYSTEMS PROGRAMMER 10/04/2024 7:59 AM DB2 SYSTEMS PROGRAMMER Narrative [facility] - 10/05/2024 4:40 AM DB2 SYSTEMS PROGRAMMER FASTING:YES FASTING: YES us Kenny Balderrama MD LAB BLOOD ORDERABLES Final Re sult [facility] [address] [facility] [place] [address] * (ABNORMAL) Lipid panel (10/04/2024 7:58 AM DB2 SYSTEMS PROGRAMMER) Pathologist [facility] Cholesterol 91 <200 mg/dL [facility] [...] factors. LDL-C is now calculated using the Len-Ridge calculation, which is a validated novel method providing better accuracy than the Friedewald equation in the estimation of LDL-C. Len ELIZALDE et al. IRAIDA. 2013;310(19): 6727-6805 (http://education.Solutionreach.BrandCont/faq/CDC431) Chol/HDL ratio 3.1 <5.0 (calc) [facility] Non-HDL, (LDL+VLDL) 62 <130 mg/dL (calc) [facility] Comment: For patients with diabetes plus 1 major ASCVD risk factor, treating to a non-HDL-C goal of <100 mg/dL (LDL-C of <70 mg/dL) is considered a therapeutic option. Blood 10/04/2024 7:58 AM DB2 SYSTEMS PROGRAMMER 10/04/2024 7:59 AM DB2 SYSTEMS PROGRAMMER Narrative [facility] - 10/05/2024 4:40 AM DB2 SYSTEMS PROGRAMMER FASTING:YES FASTING: YES Kenny Balderrama MD LAB BLOOD ORDERABLES Final Re sult Performing Organization Address [facility] Co de Phone Number [facility] [address] [place] [address] * SCAN - RADIOLOGY/IMAGING (09/10/2024) Anatomical Region Laterality Modality Other Kenny Balderrama MD Final Result * Hepatitis C antibody (07/11/2021 7:03 AM CDT) Hep C Ab NON-REACTI VE NON-REACT ROSE MARIE [facility] SIGNAL TO CUT-OFF 0.04 <1.00 [facility] Comment: HCV antibody was non-reactive. There is no laboratory evidence of HCV infection. In most cases, no further action is required. However, if recent HCV exposure is suspected, a test for HCV RNA (test code 25055) is suggested. For additional information please refer to http://education.[employer]/faq/UCE36v4 (This link is being provided for informational/ educational purposes only.) 07/11/2021 7:03 AM CDT 07/11/2021 7:05 AM CDT Narrative [facility] - 07/12/2021 1:17 PM CDT FASTING:YES FASTING: YES Kenny Balderrama MD LAB MICROBIOLOGY - GENERAL OR DERABLES Final Result Performing Organization Address [facility] Co de Phone Number [facility] [address] [address] [facility] [place] [address] * Colonoscopy (08/23/2015) Anatomical Region Laterality Modality Other Nori Provider ENDOSCOPY PROCEDURES [facility] Result from Last 3 Months or Most Recently Relevant to Health Maintenance Insurance [facility]ICARE [facility] MEDICARE [facility] MEDICARE [facility] Advance Directives For more information, please contact: [phone] Documents on File Type Date Recorded Patient Filtering Machine Tender Expl anation Power of Cpas 08/23/2024 10:21 AM ADVANCE DIRECTIVE 08/01/2021 3:26 PM Power of Cpas 08/01/2021 1:41 PM ADVANCE DIRECTIVE 01/16/2013 12:00 AM MILAGRO R OF STATION CASHIER FINANCIAL/MEDICAL Care Teams Boiler Fireman Relationship Specialty Start Date End Date Kenny Balderrama MD PCP - General 12/17/17 Dariusz Ingram DO [address] [place] [id number] Medical Oncologist/Commercial Helicopter Pilot Hematology and Oncology 05/03/22
--- OUTSIDE RECORDS SUMMARY | 2024-11-16 07:52 | XMS_ITS | Encounter Summary ---
Author Organization [facility] Facility Care Team Providers Care Beaver Trapper Name Role Phone Kenny Balderrama MD Primary Care Provider [phone] John Carrera MD Unavailable [phone] Dariusz Ingram DO Unavailable Encounter Details Date Type Department Care Team (Latest Contact Info) Description 11/15/2015 Orders Only [facility] ProviderNori MD [address] [place] [address] Social History Tobacco Use Types Packs/Day Years Used Date Smoking Tobacco: Never Assessed Sex and Gender Information Value Date Recorded Sex Assigned at Not on file Legal Sex Male 5:45 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 us Historical Provider Final Res ult documented in this encounter Visit Diagnoses Not on filedocumented in this encounter Care Teams Beaver Trapper Relationship Specialty Start Date End Date Kenny Balderrama MD PCP - General 12/17/17 John Carrera MD Medical Oncologist/Welding Machine Operator Gas Metal Arc Medical Oncology 04/30/22 05/02/22 Dariusz Ingram DO [address] [place] [address] Medical Oncologist/Welding Machine Operator Gas Metal Arc Hematology and Oncology 05/03/22 documented as of this encounter
--- OUTSIDE RECORDS SUMMARY | 2024-11-16 07:52 | XMS_ITS | Encounter Summary ---
Author Organization [facility] Facility Care Team Providers Care [facility] Name Role Phone Kenny Balderrama MD Primary Care Provider [phone] John Carrera MD Unavailable [phone] Dariusz Ingram DO Unavailable [phone] Encounter Details Date Type Department Care Team (Latest Contact Info) Description 07/06/2018 Orders Only [facility] ProviderNori MD [address] [place] [address] Social History Tobacco Use Types Packs/Day Years Used Date Smoking Tobacco: Never Assessed Sex and Gender Information Value Date Recorded Sex Assigned at Not on file Legal Sex Male 5:45 PM PROGRAM DIRECTOR CABLE TELEVISION Gender Identity Not on file Sexual Orientation Not on file documented as of this encounter Plan of Treatment Not on file documented as of this encounter Procedures Procedure Name Priority Date/Time Associated Diagnosis Comments SCAN - LABS 08/10/2018 12:00 AM PROGRAM DIRECTOR CABLE TELEVISION documented in this encounter Results * SCAN - LABS (08/10/2018 12:00 AM PROGRAM DIRECTOR CABLE TELEVISION) Narrative 08/10/2018 12:00 AM PROGRAM DIRECTOR CABLE TELEVISION Ordered by an unspecified provider. Historical Provider Final Res ult documented in this encounter Visit Diagnoses Not on filedocumented in this encounter Care Teams [facility] Relationship Specialty Start Date End Date Kenny Balderrama MD PCP - General 12/17/17 John Carrera MD Medical Oncologist/Raisin Separator Operator Medical Oncology 04/30/22 05/02/22 Dariusz Ingram DO [address] [place] [id number] Medical Oncologist/Raisin Separator Operator Hematology and Oncology 05/03/22 documented as of this encounter
--- OUTSIDE RECORDS SUMMARY | 2024-11-16 07:52 | XMS_ITS | Patient Health Summary ---
Author Organization [facility] Address [address] [place] [address] Care Team Providers Care Paper Pattern Folder Name Role Phone Unavailable Primary Care Provider Unavailabl e Note from [facility],non-owned Affiliates and Associated Physician Practices is amultiple site organization consisting of ambulatory clinics and hospital sitesin [place], [place], [place]. This disclosure is being madepursuant to the Care Everywhere program and may not contain all information available regarding this patient. Last updated 18.[facility] [employer] Social History Tobacco Use Types Packs/Day Years Used Date Smoking Tobacco: Never Assessed Sex and Gender Information Value Date Recorded Sex Assigned at Not on file Gender Identity Not on file Sexual Orientation Not on file Procedures * DERMATOPATHOLOGY(Performed 10/02/2023) * DERMATOPATHOLOGY(Performed 12/26/2022) Results * DERMATOPATHOLOGY (10/02/2023 3:33 AM NURSERY NURSE) Only the most recent of2 resultswithin the time period is included. Case Report Dermatopathology Report Case: [id number] Authorizing Provider: Chester Valentin MD Collected: 10/02/2023 03:33 AM Ordering Location: [facility] DermPath Lab Received: 10/03/2023 09:45 AM Pathologist: Pamela Pierce MD Specimens: A) - Skin, right lat upper arm sup B) - Skin, right lat upper arm inf 4 3:27 PM NURSERY NURSE DERMATOPATHOLOGY LABORATORY Final Diagnosis Specimen A. SKIN, right lat upper arm sup: SEBORRHEIC KERATOSIS, IRRITATED (L82.0) Specimen B. SKIN, right lat upper arm inf: BENIGN VERRUCOUS KERATOSIS (L82.1) 4 3:27 PM NURSERY NURSE DERMATOPATHOLOGY LABORATORY Clinical History A-B: r/o Neoplasm 4 3:27 PM [facility] DERMATOPATHOLOGY LABORATORY Gross Description Specimen A: [...] 8x6x1 mm. Jar 0. 4 3:27 PM [facility] DERMATOPATHOLOGY LABORATORY Microscopic Description Specimen A. SKIN, right lat upper arm sup: There is acanthosis consisting of fairly uniform squamous cells with eosinophilic cytoplasm and squamous eddies. Specimen B. SKIN, right lat upper arm inf: Sections show hyperkeratosis, papillomatosis, hypergranulosis, and acanthosis. These histological findings can be seen in a verruca vulgaris or a seborrheic keratosis. 4 3:27 PM [facility] DERMATOPATHOLOGY LABORATORY Disclaimer An external and internal positive and negative controls are appropriate for the histochemical, immunohistochemical and immunofluorescence stain(s) in this case (if any), except where stated explicitly. The performance characteristics of the stain(s) cited in this report were developed and its performance characteristic determined by the Dermatopathology Laboratory at [facility], directed by Dr. Cori Hernández. These tests need not be, and therefore are not, approved by the [place] Food and Drug Administration. The tests are used for clinical purposes. Billing Codes Specimen Charges Stain Charges 59308 53164 1 1 4 3:27 PM [facility] DERMATOPATHOLOGY LABORATORY Embedded Images 4 3:27 PM [facility] DERMATOPATHOLOGY LABORATORY Pathology/Cytology TISSUE SPECIMEN FROM SKIN / Unknown 10/02/2023 3:33 AM NURSERY NURSE 10/03/2023 9:45 AM NURSERY NURSE Miscellaneous samples (specimen) TISSUE SPECIMEN FROM SKIN / Unknown 10/02/2023 3:33 AM NURSERY NURSE 10/03/2023 9:45 AM NURSERY NURSE Chester Valentin MD LAB - PATHOLOGY/CYTO LOGY ORDERABLES DERMATOPATHOLOGY LABORATORY [facility] - Department of Dermatology [address] [place] [address], [facility] [phone]
--- OUTSIDE RECORDS SUMMARY | 2024-11-16 07:52 | XMS_ITS | Clinical Summary ---
Author Organization [facility] Address [facility] [place] [address] Care Team Providers Care Steel Pourer Helper Name Role Phone Kenny Balderrama MD Primary Care Provider [phone] Social History Tobacco Use Types Packs/Day Years Used Date Smoking Tobacco: Never Assessed Sex and Gender Information Value Date Recorded Sex Assigned at Not on file Legal Sex Male 11:58 AM CUSTODIAN SUPERVISOR Gender Identity Not on file Sexual Orientation Not on file Plan of Treatment Health Maintenance Due Date Last Done Comments Colorectal Cancer Screening Colonoscopy (10 Years) 1955 Hepatitis C 12/10/1971 Annual Medicare Wellness Visit 2018 Pneumococcal Vaccine: 65+ Years (3 of 3 - PPSV23 or PCV20) 06/22/2022 06/22/2017, 09/05/2016 COVID-19 Vaccine ( season) 2024 06/24/2021, 11/13/2020, 10/16/2020 Influenza Adult (#1) 2024 07/17/2021, 06/29/2019, 08/19/2018, Additional history exists RSV Immunization or 60+ Years (1 - 1-dose 75+ series) 2028 DTaP, Tdap and Td Vaccines (2 - Td or Tdap) 12/25/2030 12/25/2020 Zoster Vaccines Completed 04/24/2018, 01/14/2018 Meningococcal B Vaccine Aged Out No l onger eligible based on patient's age to complete this topic Meningococcal Vaccine Aged Out No ashlee kelley eligible based on patient's age to complete this topic RSV Immunizations Under 20 Months Aged Out No longer eligible based on patient's age to complete this topic Insurance MEDICARE [facility] Care Teams Steel Pourer Helper Relationship Specialty Start Date End Date Kenny Balderrama MD [address] [facility] [address] [place] [id number] PCP - General FAMILY PRACTICE 09/25/21
--- OUTSIDE RECORDS SUMMARY | 2024-11-16 07:52 | XMS_ITS | Continuity of Care Document ---
Author Organization [facility] Address [address] [place] [address] Phone Care Team Providers Care Knock Out Hand Name Role Phone Conversion MD, Doctor Unavailable Unavailabl e Allergies, Adverse Reactions, Alerts Substance Reaction Status Criticality No Known Drug Allergies Other Active No I nformation Medications Medication Instructions Dosage Effective Dates (start - stop) Status Comments ATENOLOL 25 MG TABLET 1 QD-daily - Act saumya OMEPRAZOLE DR 20 MG CAPSULE 2 QD-daily - Active ALEVE 220MG TABS 2 BID - Active ADULT LOW STRENGTH 81MG TABS 1 QD - Active ATENOLOL 25 MG TABLET 1 QD-daily - No Longer Active ATENOLOL 25 MG TABLET 1 QD-daily - No Longer Active ATENOLOL 25 MG TABLET 1 QD-daily - No Longer Active ATENOLOL 25 MG TABLET 1 QD-daily - No Longer Active ATENOLOL 25 MG TABLET 1 QD-daily - No Longer Active ATENOLOL 25 MG TABLET 1 QD-daily - No Longer Active ATENOLOL 25 MG TABLET 1 QD-daily - No Longer Active OMEPRAZOLE 20MG CAPS 1 QD-daily 2005 - No Longer Active ATENOLOL 25 MG TABLET 1 QD-daily - No Longer Active ATENOLOL 25 MG TABLET 1 QD - No Longer Active CEPHALEXIN 500MG CAPS 1 TID - No Longer Active ATENOLOL 25 MG TABLET 1 QD - No Longer Active ANUSOL-HC 25MG SUPPOS 1 BID - No Longer Active TRIAMCINOLONE ACETONIDE 0.1% A 1 BID - No Longer Active NIACIN 1000MG TABS 2 QHS - No Longer Active CLOTRIMAZOLE/BETAMETH CREAM 1 DIRECTE - No Longer Active ATENOLOL 25MG TABS 1 QD - No Longer Active CLOTRIMAZOLE/BETAMETH ASONE 1-0 1 DIRECTE - No Longer Active OXISTAT 1% LOTION 1 BID No Longer Active OXISTAT 1% APPLICS 1 BID - No Longer Active LAMISIL 250MG TABS 1 QD - No Longer Active NIASPAN 1000MG TABS .5 QHS - No Longer Active NIASPAN 1000MG TABLET SA 1 DIRECTE - No Longer Active break tab in 1/2 take both at bedtime NIASPAN 500MG TABLET SA 2 QHS - No Longer Active NIASPAN 500MG TABS 1 QHS - No Longer Active RANITIDINE HCL 300MG TABS 1 QHS - No Longer Active Advance Directives Directive Yes / No Effective Date File Name No Information Encounters Encounter Description Practice Location Reason(s) For Visit Diagnoses Date Provider Providers Copied on Encounter [facility], [address], [place], [place], [address] , tel: [phone] Conversion Department No Information Sep-0 6-201 1 Conversion Doctor. [facility] [place], [address], . [facility], [address], [place], [place], [address] , tel: [phone] [facility] ESOPHAGEAL REFLUXJOINT PAIN-L/LEGPALPIT ATIONSDERMATITIS NOS Apr-2 8-201 0 Jimy Harmon. [address] [facility], [address], [place], [place], [address]. tel: [phone] [facility], [address], [place], [place], [address] , tel: [phone] [facility] LONG-TERM USE MEDS NECSCRStephanie DELGADOIG NEOP-PROSTATE Apr-2 3-201 0 Jimy Harmon. [address] [facility], [address], [place], [place], [address]. tel: [phone] [facility], [address], [place], [place], [address] , tel: [phone] [facility] IM VACCIN FOR INFLUENZA Dec-0 4-200 9 Jimy Harmon. [address] [facility], [address], [place], [place], [address]. tel: [phone] [facility], [address], [place], [place], [address] , tel: [phone] [facility] IM ROUTINE MEDICAL EXAM Apr-0 9-200 9 Jimy Harmon. [address] [facility], [address], [place], [place], [address]. tel: [phone] [facility], [address], [place], [address] , [place] tel: [phone] [facility] IM MIXED HYPERLIPIDEMIA Apr-0 2-200 9 Conversion Doctor. [facility] [place], [address], . [facility], [address], [place], [address] , [place] tel: [phone] [facility] IM BENIGN HYPERTENSION 0 9 Jimy Harmon. [address] [facility] [address] [facility], [address], [place], [place], [address]. tel: [phone] [facility], [address], [place], [address] , [place] tel: [phone] [facility] IM OTHER ATOPIC DERMATITIS 9 Jimy Harmon. [address] [facility], [address], [place], [place], [address]. tel: [phone] [facility], [address], [place], [address] , [place] tel: [phone] [facility] IM VACCINATION FOR TD-DT 8 Jimy Harmon. [address] [facility], [address], [place], [place], [address]. tel: [phone] [facility], [address], [place], [place], [address] , [place] tel: [phone] [facility]ian IM JOINT PAIN-JT NEC 8 Conversion Doctor. [address] [facility], [place], [address], [place]. [facility], [address], [place], [place], [address] , [place] tel: [phone] [facility] IM MITRAL VALVE DISORDER 6 Jimy Harmon. [address] [facility], [address], [place], [place], [address]. tel: [phone] [facility], [address], [place], [place], [address] , [place] tel: [phone] [facility] IM IMPACTED CERUMEN 6 Jimy Harmon. [address] [facility], [address], [place], [place], [address]. tel: [phone] [facility], [address], [place], [place], [address] , [place] tel: [phone] [facility] IM SEBACEOUS CYST 5 Jimy Harmon. [address] [facility], [address], [place], [place], [address]. tel:[phone] [facility], [address], [place], [place], [address] , [place] tel: [phone] [facility] IM ABDMNAL PAIN GENERALIZED Clay-1 3-200 5 Jimy Harmon. [address] [facility], [address], [place], [place], [address]. tel:+ [phone] [facility], [address], [place], [address] , [place] tel: [phone] [facility] IM HEMORRHOIDS NOS Clay-0 2-200 5 Jimy Eden. [address] [facility], [address], [place], [place], [address]. tel: [phone] [facility], [address], [place], [address] , [place] tel:[phone] [facility] IM NONSPECIF SKIN ERUPT NEC Clay-0 2-200 5 Conversion Doctor. [facility] [place], [address], [place]. [facility], [address], [place], [address] , [place] tel: [phone] [facility] IM CHEST PAIN NEC Dec-2 3-200 4 Jimy Harmon. [address] [facility], [address], [place], [place], [address]. tel: [phone] [facility], [address], [place], [place], [address] , [place] tel: [phone] Vian IM No Information Sep-1 7-200 4 Jimy Eden. [address] [facility], [address], [place], [place], [address]. tel:+ [phone] [facility], [address], [place], [place], [address] , [place] tel:[phone] [facility] IM DERMATOPHYTOSIS OF FOOT Apr-1 2-200 4 Conversion Doctor. [facility] [place], [address], [place]. [facility], [address], [place], [place], [address] , [place] tel:[phone] Vian IM UNC BEHAV TETE SKIN Apr-1 2-200 4 Jimy Eden. [address] [facility], [address], [place], [place], [address]. tel:[phone] [facility], [address], [place], [place], [address] , [place] tel:[phone] [facility] IM JOINT PAIN-PELVISMYCOS ES NEC & NOS Oct-0 7-200 3 Jimy Eden. [address] [facility], [address], [place], [place], [address]. tel:[phone] [facility], [address], [place], [place], [address] , [place] tel:[phone] [facility] IM SKIN SENSATION DISTURB Apr-1 4-200 3 Jimy Eden. [address] [facility], [address], [place], [place], [address]. tel:[phone] [facility], [address], [place], [place], [address] , [place] tel:[phone] [facility] IM BENIGN NEOPLASM SKIN NOSDISEASE OF NAIL NOS Feb-0 3-200 3 Jimy Eden. [address] [facility], [address], [place], [place], [address]. tel:+ [phone] [facility], [address], [place], [place], [address] , [place] tel:[phone] [facility] IM URINARY FREQUENCY Cuco-0 7-200 3 [facility]zabeth. [address] [facility] [address] [facility], [address], [place], [place], [address]. tel:+ [phone] [facility], [address], [place], [place], [address] , [place] tel:[phone] [facility] IM RECTAL & ANAL HEMORRHAGE Dec-0 3-200 2 Conversion Doctor. [address] [place] [address], [place], [address], [place]. [facility], [address], [place], [address] , [place] tel: [phone] [facility] IM UNILAT INGUINAL HERNIA 2200 2 Conversion Doctor. [facility] [place], [address], [place]. [facility], [address], [place], [place], [address] , [place] tel: [phone] [facility] IM ASYMPT VARICOSE VEINS 8200 2 Jimy Harmon. [address] [facility], [address], [place], [place], [address]. tel: [phone] [facility], [address], [place], [place], [address] , [place] tel: [phone] [facility] IM PLANTAR FIBROMATOSIS 9200 1 Jimy Harmon. [address] [facility], [address], [place], [place], [address]. tel: [phone] [facility], [address], [place], [place], [address] , tel: [phone] [facility] IM URIN TRACT INFECTION NOS 1 Jimy Harmon. [address] [facility], [address], [place], [place], [address]. tel: [phone] [facility], [address], [place], [place], [address] , [place] tel: [phone] [facility]ian IM EXOPHTHALMOS NOS 2200 0 Jimy Harmon. [address] [facility], [address], [place], [place], [address]. tel: [phone] [facility], [address], [place], [address] , [place] tel: [phone] Vian IM EXT HEMORRHOID W/O COMPL 7200 0 Conversion Doctor. [facility] access [facility]4 [place], [address], [place]. [facility], [address], [place], [address] , [place] tel: [phone] Vian IM EPISTAXIS Apr-1 3-200 0 Jimy Harmon. [address] [facility], [address], [place], [place], [address]. tel:[phone] [facility] [facility], [address], [place], [place], [address] , tel: [phone] Vian IM SPRAIN OF WRIST NOS 2199 9 Jimy Harmon. [address] [facility], [address], [place], [place], [address]. tel:[phone] [facility], [address], [place], [place], [address] , tel: [phone] [facility] IM GENERAL PHYSICAL EXAM 3-199 9 Jimy Harmon. [address] [facility], [address], [place], [place], [address]. tel:[phone] Family History Family Member Type Diagnosis Age At Onset No Information Immunizations Vaccine Date Status Comments 09509 - Influenza administered Source: [place] Unspecified 06022 - Influenza administered Source: [place] Unspecified 01496 - TD administered Source: Source Unspecified Payers Payer name Insurance type Covered democrat ID Authoriza tion(s) No Information Social History Type Description Quantity Date Captured Comments Sex Male Smoking Status No Information Chief Complaint And Reason For Visit No Information Reason For Referral Reason For Referral No Information History Of Present Illness Encounter Date Complaint History Of Prese nt Illness No Information Functional Status Date Functional Assessmen t No Information Medications Administered Medication Instructions Dosage Effective Dates (start - stop) Status Comments NIASPAN 1000MG TABS .5 QHS 003 - No Longer Active Instructions Date Instruction Additional Infor mation No Information Assessments Type Assessment Date No Information Patient Care Teams Name Effective Dates (start - stop) Status Members No Information
--- OUTSIDE RECORDS SUMMARY | 2024-11-16 07:52 | XMS_ITS | Encounter Summary ---
Author Organization 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 us Historical Provider Final Res ult documented in this encounter Visit Diagnoses Not on filedocumented in this encounter Care Teams Sleep Scientist Relationship Specialty Start Date End Date Kenny Balderrama MD PCP - General 12/17/17 John Carrera MD Medical Oncologist/Medieval English Literature Professor Medical Oncology 04/30/22 05/02/22 Dariusz Ingram DO [address] [place] [address] Medical Oncologist/Medieval English Literature Professor Hematology and Oncology 05/03/22 documented as of this encounter
--- OUTSIDE RECORDS SUMMARY | 2024-11-16 07:52 | XMS_ITS | Referral Summary ---
Author Organization [facility] Address [address] [place] [address] Care Team Providers Care Contamination Consultant Name Role Phone Unavailable Primary Care Provider Unavailabl e Source Comments [facility],non-owned Affiliates and Associated Physician Practices is amultiple site organization consisting of ambulatory clinics and hospital sitesin [place], [place]. This disclosure is being madepursuant to the Care Everywhere program and may not contain all information available regarding this patient. Last updated 18.[facility] [employer] Social History Tobacco Use Types Packs/Day Years Used Date Smoking Tobacco: Never Assessed Sex and Gender Information Value Date Recorded Sex Assigned at Not on file Gender Identity Not on file Sexual Orientation Not on file Plan of Treatment Not on file Daniel Rodriguez Personal/Famil y Self 1955 [address] [place] [address]
--- OUTSIDE RECORDS SUMMARY | 2024-11-16 07:52 | XMS_ITS | Clinical Summary ---
Author Organization [facility] Address [address] [place] [address] Care Team Providers Care Blood Bank Manager Name Role Phone Unavailable Primary Care Provider Unavailabl e Source Comments [facility],non-owned Affiliates and Associated Physician Practices is amultiple site organization consisting of ambulatory clinics and hospital sitesin [place], [place], [place]. This disclosure is being madepursuant to the Care Everywhere program and may not contain all information available regarding this patient. Last updated 18.[facility] [employer] Social History Tobacco Use Types Packs/Day Years Used Date Smoking Tobacco: Never Assessed Sex and Gender Information Value Date Recorded Sex Assigned at Not on file Gender Identity Not on file Sexual Orientation Not on file Plan of Treatment Health Maintenance Due Date Last Done Comments COLOGUARD (AGES 45-75) - COL ON CA SCREENING 1955 COLON MONITORING 1955 COLONOSCOPY - COLON CA SCREENING 1953 CT COLONOGRAPHY - COLON CA SCREENING 1955 Colorectal Cancer Screening 1955 FIT - COLON CA SCREENING 1955 FLEX SIG - COLON CA SCREENING 1955 LIPID TESTING 1955 MEDICARE AWV 12 MONTHS 1955 HEPATITIS C SCREENING 12/05/1971 DTAP/TDAP/TD VACCINES (1 - Tdap) 1972 PNEUMOCOCCAL VACCINE 50+ (1 of 1 - PCV) 12/10/2003 ZOSTER VACCINE (1 of 2) 12/10/2003 COVID-19 VACCINE ( - 2023-2 5 season) 2024 INFLUENZA VACCINE (#1) 2024 DEPRESSION SCREENING 09/08/2024 Respiratory Syncytial Virus (RSV) Vaccine Pt: or over 60 yrs (1 - 1-dose 75+ series) 2028 HEPATITIS B VACCINE Aged Out No longe r eligible based on patient's age to complete this topic HIB VACCINE Aged Out No longer eligi ble based on patient's age to complete this topic HPV VACCINE Aged Out No longer eligi ble based on patient's age to complete this topic MENINGOCOCCAL (Group B) VACCINE Aged Out No longer eligible based on patient's age to complete this topic MENINGOCOCCAL VACCINE Aged Out No ashlee kelley eligible based on patient's age to complete this topic Daniel Rodriguez Personal/Famil y Self 1955 [address] [id number]
--- OUTSIDE RECORDS SUMMARY | 2024-11-16 07:53 | XMS_ITS | Encounter Summary ---
Author Organization [facility] Facility Care Team Providers Care Script Writer Name Role Phone Kenny Balderrama MD Primary Care Provider John Carrera MD Unavailable [phone] Dariusz Ingram DO Unavailable [phone] Encounter Details Date Type Department Care Team (Latest Contact Info) Description 12/12/2016 Orders Only [facility] CLINCONV ProviderNori MD [address] [place] [address] Social History Tobacco Use Types Packs/Day Years Used Date Smoking Tobacco: Never Assessed Sex and Gender Information Value Date Recorded Sex Assigned at Not on file 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 us Historical Provider Final Res ult documented in this encounter Visit Diagnoses Not on filedocumented in this encounter Care Teams Script Writer Relationship Specialty Start Date End Date Kenny Balderrama MD PCP - General 12/17/17 John Carrera MD Medical Oncologist/Minesweeping Officer Medical Oncology 04/30/22 05/02/22 Dariusz Ingram DO [address] [place] [address] Medical Oncologist/Minesweeping Officer Hematology and Oncology 05/03/22 documented as of this encounter
--- OUTSIDE RECORDS SUMMARY | 2024-11-16 07:53 | XMS_ITS | Encounter Summary ---
Author Organization [facility] Facility Care Team Providers Care C2 Tactical Analysis Technician Name Role Phone Kenyn Balderrama MD Primary Care Provider [phone] John Carrera MD Unavailable [phone] Dariusz Ingram DO Unavailable [phone] Encounter Details Date Type Department Care Team (Latest Contact Info) Description 07/04/2017 Orders Only [facility]G CLINCONV ProviderNori MD [address] [place] [address] Social History Tobacco Use Types Packs/Day Years Used Date Smoking Tobacco: Never Assessed Sex and Gender Information Value Date Recorded Sex Assigned at Not on file 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 us Historical Provider Final Res ult documented in this encounter Visit Diagnoses Not on filedocumented in this encounter Care Teams C2 Tactical Analysis Technician Relationship Specialty Start Date End Date Kenny Balderrama MD PCP - General 12/17/17 John Carrera MD Medical Oncologist/Bottoming Room Inspector Medical Oncology 04/30/22 05/02/22 Dariusz Ingram DO [address] [place] [address] Medical Oncologist/Bottoming Room Inspector Hematology and Oncology 05/03/22 documented as of this encounter
--- OUTSIDE RECORDS SUMMARY | 2024-11-16 07:53 | XMS_ITS | Encounter Summary ---
Author Organization [facility] Facility Care Team Providers Care Supervisor Mails Name Role Phone Kenny Balderrama MD Primary Care Provider [phone] John Carrera MD Unavailable [phone] Dariusz Ingram DO Unavailable [phone] Encounter Details Date Type Department Care Team (Latest Contact Info) Description 01/01/2018 Orders Only [facility]G CLINCONV ProviderNori MD [address] [place] [address] Social History Tobacco Use Types Packs/Day Years Used Date Smoking Tobacco: Never Assessed Sex and Gender Information Value Date Recorded Sex Assigned at Not on file 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 us Historical Provider Final Res ult documented in this encounter Visit Diagnoses Not on filedocumented in this encounter Care Teams Supervisor Mails Relationship Specialty Start Date End Date Kenny Balderrama MD PCP - General 12/17/17 John Carrera MD Medical Oncologist/Occupational Therapy Specialist Medical Oncology 04/30/22 05/02/22 Dariusz Ingram DO [address] [place] [address] Medical Oncologist/Occupational Therapy Specialist Hematology and Oncology 05/03/22 documented as of this encounter
--- OUTSIDE RECORDS SUMMARY | 2024-11-16 07:53 | XMS_ITS | Encounter Summary ---
Author Organization [facility] Facility Care Team Providers Care Safety Relief Valve Technician Name Role Phone Kenny Balderrama MD Primary Care Provider John Carrera MD Unavailable [phone] Dariusz Ingram DO Unavailable Encounter Details Date Type Department Care Team (Latest Contact Info) Description 06/25/2017 Orders Only [facility] CLINCONV ProviderNori MD [address] [place] [address] Social History Tobacco Use Types Packs/Day Years Used Date Smoking Tobacco: Never Assessed Sex and Gender Information Value Date Recorded Sex Assigned at Not on file 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 us Historical Provider Final Res ult documented in this encounter Visit Diagnoses Not on filedocumented in this encounter Care Teams Safety Relief Valve Technician Relationship Specialty Start Date End Date Kenny Balderrama MD PCP - General 12/17/17 John Carrera MD Medical Oncologist/Corporate Sales Trainer Medical Oncology 04/30/22 05/02/22 Dariusz Ingram DO [address] [place] [address] Medical Oncologist/Corporate Sales Trainer Hematology and Oncology 05/03/22 documented as of this encounter
== END 2024-11-16 07:47 | disposition home or self-care (01) ==
LOC: ANHAUDIO 07:47
PROVIDERS: PCP Family Medicine
DX: H91.93 Unspecified hearing loss, bilateral (principal)
CPT/HCPCS: 92557; 92567